=== PATIENT | male | born 1970 | race American Indian/Alaskan Native ===

== ENCOUNTER 2019-07-06 09:28 | Observation (INO) | payer BC ==
[2019-07-06] MEDS ORDERED: SODIUM CHLORIDE 0.9% 1000 ML 1,000 ML IV ONE (10:00)
[2019-07-06] MEDS ORDERED: ONDANSETRON 4 MG/2 ML INJ IV ONE (10:05)
[2019-07-06] MEDS ORDERED: MORPHINE 4 MG/1 ML INJ IV ONE (10:05)
--- NOTE | 2019-07-06 10:05 | Emergency Department Report ---
ED Chest Pain HPI - General Chief Complaint: Syncope Stated Complaint: SYNCOPAL EPISODE Time Seen by Provider: 07/06/19 09:55 Source: patient, EMS Mode of arrival: Stretcher Limitations: No Limitations - History of Present Illness Initial Comments: Patient is 48 years old male with history of diabetes and hypertension and strong family history of cardiac disease. Patient presented to the ER via EMS for more after patient started to have chest pain, tightness with no radiation. Patient stated that he is feeling nauseated but no vomiting. He denied any shortness of breath or cough. No fever or chills. Patient is also complaining of headache. Patient stated that he had a syncopal episode and he fell from his chair but he denied any head injury or neck injury. MD Complaint: chest pain -: Sudden, This morning Onset: during rest Pain Location: substernal Severity scale (0 -10): 5 Quality: tightness Consistency: constant Improves With: nothing Worsens With: nothing Heart Score - HEART Score History: Moderately suspicious EKG: Non-specific Age: 45-65 Risk factors: > 3 risk factors or hx of atherosclerotic disease Troponin: < normal limit HEART Score: 5 - Critical Actions Critical Actions: 4-6 pts:12-16.6% risk of adverse cardiac event. Should be admitted ED Review of Systems ROS: Stated complaint: SYNCOPAL EPISODE Other details as noted in HPI Comment: All other systems reviewed and negative Constitutional: denies: chills, fever Respiratory: denies: cough, shortness of breath, SOB with exertion Cardiovascular: chest pain. denies: palpitations, dyspnea on exertion Gastrointestinal: nausea. denies: abdominal pain, vomiting, diarrhea, constipation, hematemesis, melena, hematochezia Musculoskeletal: denies: back pain Neurological: headache. denies: weakness, numbness, paresthesias, confusion, abnormal gait ED Past Medical Hx - Past Medical History Previous Medical History?: Yes Hx Hypertension: Yes Hx Diabetes: Yes Hx Psychiatric Treatment: Yes (depression) Additional medical history: Hyperlipidemia - Surgical History Past Surgical History?: No - Social History Smoking Status: Never Smoker Substance Use Type: None ED Physical Exam - General Limitations: No Limitations General appearance: alert, in no apparent distress - Head Head exam: Present: atraumatic, normocephalic, normal inspection - Eye Eye exam: Present: normal appearance - ENT ENT exam: Present: normal exam, normal orophraynx, mucous membranes moist - Neck Neck exam: Present: normal inspection, full ROM. Absent: tenderness, meningismus, lymphadenopathy, thyromegaly - Respiratory Respiratory exam: Present: normal lung sounds bilaterally - Cardiovascular Cardiovascular Exam: Present: regular rate, normal rhythm, normal heart sounds - GI/Abdominal GI/Abdominal exam: Present: soft, normal bowel sounds. Absent: distended, tenderness, guarding, rebound, rigid, organomegaly, mass, bruit, pulsatile mass, hernia - Extremities Exam Extremities exam: Present: normal inspection, full ROM, normal capillary refill. Absent: tenderness, pedal edema, calf tenderness - Back Exam Back exam: Present: normal inspection, full ROM. Absent: CVA tenderness (R), CVA tenderness (L) - Neurological Exam Neurological exam: Present: alert, oriented X3, CN II-XII intact, normal gait, reflexes normal - Psychiatric Psychiatric exam: Present: normal mood - Skin Skin exam: Present: warm, intact, normal color ED Course Vital Signs 07/06/19 07/06/19 07/06/19 10:00 11:03 11:10 Temperature 98.5 F Pulse Rate 68 66 Respiratory 10 L 16 26 H Rate Blood Pressure 132/88 Blood Pressure 132/88 [Right] O2 Sat by Pulse 97 96 97 Oximetry ED Medical Decision Making - Lab Data Result diagrams: 07/06/19 10:23 07/06/19 10:23 - EKG Data -: EKG Interpreted by Ga EKG shows normal: sinus rhythm Rate: normal - EKG Data Interpretation: no acute changes - Radiology Data Radiology results: report reviewed - Medical Decision Making Patient is 48 years old male with history of diabetes and hypertension and strong family history of cardiac disease. Patient presented to the ER via EMS for more after patient started to have chest pain, tightness with no radiation. Patient stated that he is feeling nauseated but no vomiting. He denied any shortness of breath or cough. No fever or chills. Patient is also complaining of headache. Patient stated that he had a syncopal episode and he fell from his chair but he denied any head injury or neck injury. Patient EKG showed no ST elevation or depression. Chest x-ray is unremarkable. Labs reviewed and is unremarkable including first troponin. CT brain is negative for acute finding. Patient given aspirin, morphine and Zofran. Patient still complaining of chest pain and given nitroglycerin and Tylenol. I discussed the patient with Dr. Sin, he advised to admit the patient to Dr. Hardin. Critical Care Time: Yes Critical care time in (mins) excluding proc time.: 30 Critical care attestation.: If time is entered above; I have spent that time in minutes in the direct care of this critically ill patient, excluding procedure time. ED Disposition Clinical Impression: Unstable angina, Chest pain Disposition: OP ADMIT IP TO THIS HOSP Is pt being admited?: Yes Condition: Stable Instructions: Angina (ED), Chest Pain (ED)
[2019-07-06] MEDS ORDERED: MORPHINE 2 MG/1 ML INJ ONE ×2 (10:25→13:01)
--- NOTE | 2019-07-06 10:36 | Cat Scan Report ---
CT HEAD WITHOUT CONTRAST INDICATION / CLINICAL INFORMATION: syncope. TECHNIQUE: Axial imaging performed from the skull apex through the skull base without the use of cont rast. Sagittal and coronal reformatted images. All CT scans at this location are performed using CT dose reduction for ALARA by means of automated exposure control. COMPARISON: None available. FINDINGS: CEREBRAL PARENCHYMA: No significant abnormality. No acute territorial infarct. HEMORRHAGE: None. EXTRA-AXIAL SPACES: Normal in size and morphology for the patient's age. VENTRICULAR SYSTEM: Normal in size and morphology for the patient's age. MIDLINE SHIFT OR HERNIATION: None. CEREBELLUM / BRAINSTEM: No significant abnormality. CALVARIUM: No significant abnormality. ORBITS: Normal as visualized. PARANASAL SINUSES / MASTOID AIR CELLS: Normal as visualized. SOFT TISSUES of HEAD: No significant abnormality. ADDITIONAL FINDINGS: None. IMPRESSION: No acute intracranial abnormality. Normal CT head. Signer Name: Felton Lyn Jr, MD Signed: 07/06/2019 10:32 AM Workstation Name: [id number]
[2019-07-06 10:39] LABS: Basophils % (Auto) 0.4 % (0.0-1.8); Eosinophils # (Auto) 0.1 K/mm3 (0.0-0.4); Eosinophils % (Auto) 1.3 % (0.0-4.3); Hematocrit 43.3 % (35.5-45.6); Lymphocytes # (Auto) 2.3 K/mm3 (1.2-5.4); Lymphocytes % (Auto) 37.8 % (13.4-35.0); Mean Corpuscular HGB Conc 35 % (32-34); Mean Corpuscular Volume 94 fl (84-94); Monocytes # (Auto) 0.4 K/mm3 (0.0-0.8); Monocytes % (Auto) 7.3 % (0.0-7.3); Platelet Count 226 K/mm3 (140-440); Red Blood Count 4.61 M/mm3 (3.65-5.03); Red Cell Distribution Width 13.2 % (13.2-15.2)
[2019-07-06 10:52] LABS: INR 0.96 (0.87-1.13)
[2019-07-06 10:53] LABS: Partial Thromboplastin Time 25.6 Sec. (24.2-36.6)
[2019-07-06 11:00] LABS: BUN/Creatinine Ratio 13; Blood Urea Nitrogen 12 mg/dL (9-20); Calcium 9.3 mg/dL (8.4-10.2); Hemolysis Index 21
[2019-07-06] MEDS ORDERED: ASPIRIN 81 MG TAB CHEW PO ONE (11:05)
[2019-07-06] MEDS ORDERED: ACETAMINOPHEN 500 MG TAB PO ONE (11:21)
[2019-07-06] MEDS ORDERED: NITROGLYCERIN 0.4 MG TAB SUBL SL ONE (11:21)
--- NOTE | 2019-07-06 11:33 | History and Physical Report ---
History of Present Illness Chief complaint: My chest was hurting and then I passed out. History of present illness: 48-year-old male with HTN, DM, HLD, Depression presents to ED for evaluation. Patient states that he experienced an acute onset of pain in his chest while at work. Patient states that the pain is 56/10, substernal, constant, not worsened with exertion, not relieved with rest, nonradiating, squeezing in nature. Patient also acknowledges nausea and diaphoresis. Patient reports that during an episode of pain he subsequently lost consciousness. EMS notified and upon arrival the patient was found to be in distress and transported to [facility] for further care and evaluation. Patient seen and evaluated in the emergency department. Lab and imaging studies reviewed. Patient found to have symptoms consistent with angina as well as diastolic congestive heart failure. Patient admitted to telemetry and initiated on CHF/chest pain protocol due to increased likelihood of cardiac decompensation. Cardiology consulted. No prior admission for review. All listed medication reconciled at time of admission. Past History Past Medical History: diabetes, hypertension, hyperlipidemia, other (See HPI) Past Surgical History: No surgical history, Other (Reviewed) Social history: , lives with family Family history: CAD, hypertension Medications and Allergies Allergies Allergy/AdvReac Type Severity Reaction Status Date / Time No Known Allergies Allergy Unverified 07/06/19 12:50 Home Medications Medication Instructions Recorded Confirmed Last Taken Type ALPRAZolam [Xanax TAB] 1 mg PO HS 07/06/19 07/06/19 07/05/19 22:00 History Bupropion Xl 300 mg PO DAILY 07/06/19 07/06/19 07/06/19 06:00 History Omeprazole 40 mg PO QDAY 07/06/19 07/06/19 07/06/19 06:00 History PARoxetine 20 mg PO DAILY 07/06/19 07/06/19 07/06/19 06:00 History Pravastatin 40 mg PO HS 07/06/19 07/06/19 07/05/19 22:00 History Steglatro 5 mg PO DAILY 07/06/19 07/06/19 07/06/19 06:00 History amLODIPine 10 mg PO HS 07/06/19 07/06/19 07/05/19 22:00 History glipiZIDE 10 mg PO DAILY 07/06/19 07/06/19 07/06/19 06:00 History Review of Systems Constitutional: no weight loss, no weight gain, no fever, no chills Ears, nose, mouth and throat: no ear pain, no ear discharge, no tinnitis, no decreased hearing, no nose pain, no nasal congestion Cardiovascular: chest pain, dyspnea on exertion, decreased exercise tolerance Respiratory: no cough, no cough with sputum, no excessive sputum, no hemoptysis Gastrointestinal: no abdominal pain, no nausea, no constipation, no hematemesis, no coffee ground emesis Genitourinary Male: no hematuria, no flank pain, no discharge, no urinary hesitancy Rectal: no pain, no bleeding Musculoskeletal: no neck pain, no shooting arm pain, no arm numbness/tingling, no morning stiffness, no muscle weakness Integumentary: no rash, no pruritis, no bullae, no depigmentation, no acne, no color changes Neurological: no transient paralysis, no parathesias, no tingling, no seizures, no headaches, no tic, no aphasia, no change in speech, no confusion Psychiatric: no anxiety, no memory loss, no change in sleep habits, no insomnia, no hypersomnia, no change in appetite, no change in libido Endocrine: no cold intolerance, no heat intolerance, no polyphagia, no nocturia Hematologic/Lymphatic: no easy bruising, no easy bleeding, no lymphadenopathy Allergic/Immunologic: no urticaria, no wheezing, no persistent infections Exam - Constitutional Vitals: Temp Pulse Resp BP Pulse Ox 98.5 F 66 26 H 132/88 97 07/06/19 10:00 07/06/19 11:10 07/06/19 11:10 07/06/19 10:00 07/06/19 11:10 General appearance: Present: mild distress - EENT Eyes: Present: PERRL ENT: hearing intact, clear oral mucosa - Neck Neck: Present: supple, normal ROM - Respiratory Respiratory effort: normal Respiratory: bilateral: CTA - Cardiovascular Heart Sounds: Present: S1 & S2. Absent: rub, click - Extremities Extremities: pulses symmetrical, No edema Peripheral Pulses: within normal limits - Abdominal General gastrointestinal: Present: soft, non-tender, non-distended, normal bowel sounds Male genitourinary: Present: normal - Integumentary Integumentary: Present: clear, warm, dry - Musculoskeletal Musculoskeletal: gait normal, strength equal bilaterally - Psychiatric Psychiatric: appropriate mood/affect, intact judgment & insight - Neurologic Neurologic: CNII-XII intact, moves all extremities Results - Labs CBC & Chem 7: 07/06/19 10:23 07/06/19 10:23 Labs: Abnormal lab results 07/06/19 07/06/19 07/06/19 Range/Units 10:07 10:23 10:23 MCH 33 H (28-32) pg MCHC 35 H (32-34) % Lymph % (Auto) 37.8 H (13.4-35.0) % Glucose 234 H (75-100) mg/dL POC Glucose 223 H (70-105) Assessment and Plan - Patient Problems (1) Angina at rest Current Visit: Yes Status: Acute Plan to address problem: Serial cardiac enzymes, EKG, admit to telemetry, morphine, supplemental oxygen, nitro, aspirin, stress test, cardiology consulted (2) CHF (congestive heart failure) Current Visit: Yes Status: Acute Qualifiers: Heart failure type: diastolic Heart failure chronicity: acute Qualified Code(s): I50.31 - Acute diastolic (congestive) heart failure Plan to address problem: CHF protocol: Afterload reduction, diuresis, supplemental oxygen, BNP, chest x- ray, pulse oximetry, magnesium level, thyroid panel, nebulizer therapy, strict I/O, daily weight, monitor urine output every shift. (3) Hypertension Current Visit: Yes Status: Acute Qualifiers: Hypertension type: essential hypertension Qualified Code(s): I10 - Essential (primary) hypertension Plan to address problem: Monitor BP every shift, continue medical management. (4) Diabetes Current Visit: Yes Status: Acute Plan to address problem: Consistent carbohydrate diet, sliding scale insulin therapy, Accu-Chek, hypoglycemia protocol (5) Hyperlipidemia Current Visit: Yes Status: Acute Qualifiers: Hyperlipidemia type: mixed hyperlipidemia Qualified Code(s): E78.2 - Mixed hyperlipidemia Plan to address problem: Cholesterol level, statin therapy, balanced diet, (6) DVT prophylaxis Current Visit: Yes Status: Acute Plan to address problem: SCD to bilateral lower extremities while in bed, patient ambulatory.
--- NOTE | 2019-07-06 11:45 | XRay Report ---
CHEST 1 VIEW INDICATION: Chest Pain. COMPARISON: None FINDINGS: Support devices: None. Heart: Within normal limits. Lungs/Pleura: No acute air space or interstitial disease. Additional findings: None. IMPRESSION: Normal AP chest Signer Name: Felton Lyn Jr, MD Signed: 07/06/2019 11:40 AM Workstation Name: [id number]
[2019-07-06 12:47] LABS: Bilirubin,Urine NEG (Negative); Blood,Urine NEG (Negative); Color,Urine Colorless (Yellow); Protein,Urine <15 mg/dL mg/dL (Negative); Urobilinogen,Urine < 2.0 mg/dL (<2.0)
[2019-07-06 12:51] LABS: WBC,Urine < 1.0 /HPF (0.0-6.0)
[2019-07-06 13:03] LABS: Amphetamine Screen,Urine PRESUMPTIVE NEGATIVE; Benzodiazepines Screen,Urine PRESUMPTIVE NEGATIVE; Cannabinoid Screen,Urine PRESUMPTIVE NEGATIVE; Cocaine Screen,Urine PRESUMPTIVE NEGATIVE; Methadone Screen,Urine PRESUMPTIVE NEGATIVE; Opiate Screen,Urine PRESUMPTIVE NEGATIVE
[2019-07-06] MEDS ORDERED: MORPHINE 4 MG/1 ML INJ IM ONE (13:25)
[2019-07-06] MEDS ORDERED: NITROGLYCERIN 0.4 MG TAB SUBL SL PRN (13:45)
[2019-07-06] MEDS ORDERED: DEXTROSE 50% IN WATER (25GM) 50 ML SYRINGE IV PRN (18:07)
[2019-07-06] MEDS: IBUPROFEN 800 MG TAB PO SCH ×2 (19:22→22:22)
[2019-07-06] MEDS ORDERED: MORPHINE 2 MG/1 ML INJ IV PRN (20:03)
[2019-07-06 20:49] LABS: Chol/HDL Ratio 3.52 %
[2019-07-06] MEDS ORDERED: NON-FORMULARY EACH (Amlodipine 10 MG) PO SCH (22:00)
[2019-07-06] MEDS ORDERED: ALPRAZolam 1 MG TAB PO SCH (22:00)
[2019-07-06] MEDS ORDERED: buPROPion XL 150 MG TAB PO SCH (22:00)
[2019-07-06] MEDS ORDERED: NON-FORMULARY EACH (Pravastatin 40 MG) PO SCH (22:00)
[2019-07-06] MEDS ORDERED: amLODIPine 10 MG TAB PO SCH (22:00)
[2019-07-06] MEDS ORDERED: PRAVASTATIN 40 MG TAB PO SCH (22:00)
[2019-07-07] MEDS: INSULIN LISPRO 100 UNIT/ML SUB-Q SCH ×3 (00:50→12:35)
[2019-07-07 04:25] LABS: BUN/Creatinine Ratio 13; Blood Urea Nitrogen 12 mg/dL (9-20); Calcium 8.8 mg/dL (8.4-10.2); Hemolysis Index 9
[2019-07-07] MEDS ORDERED: REGADENOSON 0.4 MG/5 ML INJ IV ONE (08:50)
[2019-07-07] MEDS ORDERED: NON-FORMULARY EACH (Omeprazole [Omeprazole] 40 MG) PO SCH (10:00)
[2019-07-07] MEDS ORDERED: PANTOPRAZOLE 40 MG TAB PO SCH (10:00)
[2019-07-07] MEDS ORDERED: NON-FORMULARY EACH (Paroxetine 20 MG) PO SCH (10:00)
[2019-07-07] MEDS ORDERED: ASPIRIN EC 325 MG TAB PO SCH (10:00)
[2019-07-07] MEDS ORDERED: PARoxetine 20 MG TAB PO SCH (10:00)
[2019-07-07] MEDS ORDERED: BUPROPION 300 MG PO SCH (10:00)
--- NOTE | 2019-07-07 10:04 | Consultation ---
History of Present Illness Consult date: 07/07/19 Consult reason: chest pain History of present illness: Patient comes for evaluation of substernal chest pain without radiation. Pain occurs spontaneously - occurring with exercise and at rest. Patient denies orthopnea, pnd, palpitations, dizziness or syncope. Past History Past Medical History: diabetes, hypertension, hyperlipidemia, other (See HPI) Past Surgical History: No surgical history, Other (Reviewed) Social history: , lives with family Family history: CAD, hypertension Medications and Allergies Allergies Allergy/AdvReac Type Severity Reaction Status Date / Time No Known Allergies Allergy Unverified 07/06/19 12:50 Home Medications Medication Instructions Recorded Confirmed Last Taken Type ALPRAZolam [Xanax TAB] 1 mg PO HS 07/06/19 07/06/19 07/05/19 22:00 History Bupropion Xl 300 mg PO DAILY 07/06/19 07/06/19 07/06/19 06:00 History Omeprazole 40 mg PO QDAY 07/06/19 07/06/19 07/06/19 06:00 History PARoxetine 20 mg PO DAILY 07/06/19 07/06/19 07/06/19 06:00 History Pravastatin 40 mg PO HS 07/06/19 07/06/19 07/05/19 22:00 History Steglatro 5 mg PO DAILY 07/06/19 07/06/19 07/06/19 06:00 History amLODIPine 10 mg PO HS 07/06/19 07/06/19 07/05/19 22:00 History glipiZIDE 10 mg PO DAILY 07/06/19 07/06/19 07/06/19 06:00 History Active Meds: Active Medications Alprazolam (Xanax) 1 mg PO [facility] Last Admin: 07/06/19 22:23 Dose: 1 mg Documented by: Amlodipine Besylate (Amlodipine) 10 mg PO QHS [facility] Last Admin: 07/06/19 22:23 Dose: 10 mg Documented by: Aspirin (Ecotrin) 325 mg PO QDAY [facility] Bupropion HCl (Wellbutrin Xl) 300 mg PO QHS [facility] Last Admin: 07/06/19 22:22 Dose: 300 mg Documented by: Dextrose (D50w (25gm) Syringe) 50 ml IV Q30MIN PRN; Protocol PRN Reason: Hypoglycemia Ibuprofen (Ibuprofen) 800 mg PO BID [facility] Last Admin: 07/06/19 22:22 Dose: 800 mg Documented by: Insulin Human Lispro (Humalog) 0 unit SUB-Q Q6HR [facility]; Protocol Last Admin: 07/07/19 07:38 Dose: Not Given Documented by: Morphine Sulfate (Morphine) 2 mg IV Q4H PRN PRN Reason: Pain, Moderate (4-6) Nitroglycerin (Nitrostat) 0.4 mg SL Q5M PRN PRN Reason: Chest Pain Pantoprazole Sodium (Protonix) 40 mg PO DAILY [facility] Paroxetine HCl (Paxil) 20 mg PO DAILY [facility] Pravastatin Sodium (Pravachol) 40 mg PO QHS [facility] Last Admin: 07/06/19 22:23 Dose: 40 mg Documented by: Sodium Chloride (Sodium Chloride Flush Syringe 10 Ml) 10 ml IV PRN PRN PRN Reason: LINE FLUSH Last Admin: 07/06/19 22:23 Dose: 10 ml Documented by: Sodium Chloride (Sodium Chloride Flush Syringe 10 Ml) 10 ml IV PRN PRN PRN Reason: LINE FLUSH Review of Systems All systems: negative (pertinent positives in H&P) Physical Examination Vital Signs Temp Pulse Resp BP Pulse Ox 98.5 F 68 16 132/88 96 07/06/19 10:00 07/06/19 10:00 07/06/19 10:00 07/06/19 10:00 07/06/19 10:00 HEENT: Positive: PERRL, EOMI Neck: Positive: neck supple Cardiac: Positive: Reg Rate and Rhythm, S1/S2 Lungs: Positive: Normal Exam Neuro: Positive: Grossly Intact Abdomen: Positive: Unremarkable, Soft Extremities: Present: normal Results 07/06/19 10:23 07/07/19 03:48 Coagulation 07/06/19 Range/Units 10: PT 12.9 (12.2-14.9) Sec. INR 0.96 (0.87-1.13) APTT 25.6 (24.2-36.6) Sec. Lipids 07/06/19 Range/Units 16:00 Triglycerides 316 H (2-149) mg/dL Cholesterol 162 (50-199) mg/dL HDL Cholesterol 46 (40-59) mg/dL Cholesterol/HDL Ratio 3.52 % CBC 07/06/19 Range/Units 10:23 WBC 6.0 (4.5-11.0) K/mm3 RBC 4.61 (3.65-5.03) M/mm3 Hgb 15.0 (11.8-15.2) gm/dl Hct 43.3 (35.5-45.6) % Plt Count 226 (140-440) K/mm3 Lymph # 2.3 (1.2-5.4) K/mm3 [place] # 0.4 (0.0-0.8) K/mm3 Eos # 0.1 (0.0-0.4) K/mm3 Baso # 0.0 (0.0-0.1) K/mm3 Comprehensive Metabolic Panel 07/06/19 07/07/19 Range/Units 10:23 03:48 Sodium 139 140 (137-145) mmol/L Potassium 3.9 3.9 (3.6-5.0) mmol/L Chloride 101.1 103.5 (98-107) mmol/L Carbon Dioxide 22 24 (22-30) mmol/L BUN 12 12 (9-20) mg/dL Creatinine 0.9 0.9 (0.8-1.5) mg/dL Glucose 234 H 221 H (75-100) mg/dL Calcium 9.3 8.8 (8.4-10.2) mg/dL Assessment and Plan (1) Angina at rest Serial cardiac enzymes negative EKG shows sinus rhythm continue telemetry stress test today (2) CHF (congestive heart failure) echo pending (3) Hypertension Maximize antihypertensive therapy (4) Diabetes Management per primary (5) Hyperlipidemia continue statin therapy
--- NOTE | 2019-07-07 11:20 | Discharge Summary ---
Providers - Providers Date of Admission: 07/06/19 11:28 Attending physician: DOV VELÁZQUEZ MD 07/06/19 Consult to Cardiac Rehabilitation [CONS] Routine Reason For Exam: Phase I Consult to Cardiac Rehabilitation [CONS] Routine Reason For Exam: Phase I 07/06/19 20:02 Consult to Cardiology [CONS] Routine Consulting Provider: MICHELLE HERNANDEZ Reason For Exam: angina Primary care physician: [facility] Hospitalization Condition: Stable Hospital course: 56-year-old man with history of hypertension who presents to the hospital with chest pain and syncope. He went on to have a stress test which showed no acute findings He angela up from a seated position around 7 AM, after which he passed out. He got up and sat down felt a little bit better. He went to the fire station when he checked his glucose and it was about 300 and his blood pressure was elevated. Patient states that he has not been compliant with diabetic diet, he has been drinking soda eating ice cream and he was enjoying himself for the holidays. Syncope was likely due to dehydration, patient admitted to poly-urea and high blood glucose. -Patient was educated about diabetic diet and compliance with medications. He was advised to do 30 minutes of light to moderate exercise daily. -He was given pre-meal insulin to be used on sliding scale until his glucose improves, per patient his last A1c was 8. But admits that his glucose has been rising. Preventative health counseling performed for 17 minutes Diagnosis Syncope likely due to dehydration/transient autonomic imbalance Dehydration Uncontrolled diabetes with persistent hyperglycemia Chest pain due to costochondritis Hypertension Disposition: - TO HOME OR SELFCARE Time spent for discharge: 35 minutes Core Measure Documentation - Palliative Care Palliative Care/ Comfort Measures: Not Applicable - Core Measures Any of the following diagnoses?: none Exam - Constitutional Vitals: Temp Pulse Resp BP Pulse Ox 98.1 F 64 20 108/73 98 07/07/19 03:21 07/07/19 05:00 07/07/19 05:00 07/07/19 03:21 07/07/19 05:00 General appearance: Present: no acute distress, well-nourished - EENT Eyes: Present: PERRL ENT: hearing intact, clear oral mucosa - Neck Neck: Present: supple, normal ROM - Respiratory Respiratory effort: normal Respiratory: bilateral: CTA - Cardiovascular Heart Sounds: Present: S1 & S2. Absent: rub, click - Extremities Extremities: pulses symmetrical, No edema Peripheral Pulses: within normal limits - Abdominal General gastrointestinal: Present: soft, non-tender, non-distended, normal bowel sounds Male genitourinary: Present: normal - Integumentary Integumentary: Present: clear, warm, dry - Musculoskeletal Musculoskeletal: gait normal, strength equal bilaterally - Psychiatric Psychiatric: appropriate mood/affect, intact judgment & insight - Neurologic Neurologic: CNII-XII intact, moves all extremities Plan Follow up with: RADHA ARMENDARIZ MD [Staff Physician] - 7 Days PRIMARY CARE, [Primary Care Provider] - 7 Days Prescriptions: Insulin Lispro [Insulin Lispro Kwikpen U-100] 0 unit SQ AC #5 insuln.pen
[2019-07-07] MEDS: IBUPROFEN 800 MG TAB PO SCH (12:07)
[2019-07-07] MEDS ORDERED: ONDANSETRON 4 MG/2 ML INJ IV PRN (12:17)
[2019-07-07 16:41] VITALS: BP 125/81
== END 2019-07-07 17:40 | disposition home or self-care (01) ==
LOC: ED 09:28 → 4A 11:28 → INTOOBSV 11:28 → 4A 12:55
PROVIDERS: ADMIT Internal Medicine; ATTEND Internal Medicine
DX: I20.9 Angina pectoris, unspecified (principal); I11.0 Hypertensive heart disease with heart failure; I50.31 Acute diastolic (congestive) heart failure; E78.5 Hyperlipidemia, unspecified; E11.9 Type 2 diabetes mellitus without complications; F32.9 Major depressive disorder, single episode, unspecified; R55 Syncope and collapse; F17.200 Nicotine dependence, unspecified, uncomplicated; Z71.6 Tobacco abuse counseling; R42 Dizziness and giddiness; Z79.899 Other long term (current) drug therapy
CPT/HCPCS: 36415; 70450; 71045; 78452; 80048; 80061; 80307; 81001; 82962; 83690; 83880; 84484; 85025; 85379; 85610; 85730; 93005; 93010; 93017; 93306; 96361; 96372; 96374; 96375; 96376; 99291; 99406; A9270; A9502; G0378; J2270; J2405; J2785; J3246; J7030; J1815